=== PATIENT | male | born 1990 | race Caucasian/White ===

== ENCOUNTER 2016-04-29 23:57 | Emergency (ER) | payer MEDICAID ==
[~2016-04-29] VITALS: Ht 195.6 cm; Wt 159.0 kg
[2016-04-30 00:01] VITALS: BP 204/125; PULSE 124; RESP 14; TEMP 98.4; O2SAT 100
[2016-04-30] MEDS ORDERED: BUSP5TAB PO (00:16)
[2016-04-30] MEDS ORDERED: [UNRECOGNIZED DRUG - REMARK] (00:16)
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
== END 2016-04-30 04:32 | disposition home or self-care (01) ==
LOC: NEPE 23:57
DX: M54.9 Dorsalgia, unspecified (principal); I10 Essential (primary) hypertension; G47.30 Sleep apnea, unspecified; F17.200 Nicotine dependence, unspecified, uncomplicated; Z87.09 Personal history of other diseases of the respiratory system; Z86.59 Personal history of other mental and behavioral disorders; Z86.79 Personal history of other diseases of the circulatory system; Z87.39 Personal history of other diseases of the musculoskeletal system and connective tissue
CPT/HCPCS: 99283

== ENCOUNTER 2016-06-05 20:58 | Emergency (ER) | payer MEDICAID ==
[~2016-06-05] VITALS: Ht 198.1 cm; Wt 145.0 kg
[~2016-06-05 20:58] MED LIST: BUSP5TAB PO; [UNRECOGNIZED DRUG - REMARK]
[2016-06-05 20:59] VITALS: BP 180/92; PULSE 69; RESP 16; TEMP 98.9; O2SAT 100
--- NOTE | 2016-06-05 21:56 | PD ---
Physical Exam Date Seen by Provider: Jun 05, 2016 Time Seen by Provider: 21:52 Narrative 26 YOWM C/O CP YEST WORSE TODAY.WORSE WITH BREATHING AND MOVING. NO SOB,N/V, ABD PAIN.NO SWELLING IN THE LEGS. NO SEDENTARY ACTIVITY. POS TOB,NO ETOH. VS NOTED. PT AWAITING BED PLACEMENT. Data Data Last Documented VS Vital Signs Date Time Temp Pulse Resp B/P Pulse Ox O2 Delivery O2 Flow Rate FiO2 06/05/16 20:59 98.9 69 16 180/92 100 Room Air [facility] Medical Record Reviewed: Yes Supervised Visit with YOMAIRA: Yes Didier Wong Jun 05, 2016 21:56
[2016-06-05 22:59] VITALS: BP 154/92; PULSE 67; RESP 18; O2SAT 97
[2016-06-05] MEDS ORDERED: KETOROLAC TROMETHAMINE 30 MG/ML (IVP) VIAL IVP ONE (23:45)
[2016-06-05] MEDS ORDERED: SODIUM CHLOR 0.9% 1000 ML INJ 1,000 ML IV ONE (23:45)
[2016-06-05 23:48] VITALS: BP 146/85; PULSE 57; RESP 18; O2SAT 97
[2016-06-05 23:51] LABS: AUTOMATED NEUTROPHIL # 6.2 TH/MM3 (1.8-7.7); BASOPHIL % 0.4 % (0.0-2.0); EOSINOPHIL # 0.2 TH/MM3 (0-0.4); EOSINOPHIL % 1.6 % (0.0-4.0); HEMATOCRIT 44.1 % (39.0-51.0); HEMO FLAGS DIFF FINAL; LYMPH % 27.3 % (9.0-44.0); LYMPHOCYTE # 2.7 TH/MM3 (1.0-4.8); MEAN CELL VOLUME 90.2 FL (80.0-100.0); MEAN CORPUSCULAR HEMOGLOBIN 31.3 PG (27.0-34.0); MEAN CORPUSCULAR HGB CONC 34.7 % (32.0-36.0); MONO % 7.1 % (0.0-8.0); NEUT % 63.6 % (16.0-70.0); PLATELET COUNT 211 TH/MM3 (150-450); RED BLOOD COUNT 4.89 MIL/MM3 (4.50-5.90); RED CELL DISTRIBUTION WIDTH 13.1 % (11.6-17.2); WHITE BLOOD COUNT 9.7 TH/MM3 (4.0-11.0)
[2016-06-06 00:04] LABS: ALT (GPT) 27 U/L (12-78); ANION GAP 9 MEQ/L (5-15); AST (GOT) 16 U/L (15-37); BICARBONATE 27.5 MEQ/L (21.0-32.0); BLOOD UREA NITROGEN 11 MG/DL (7-18); CHLORIDE 107 MEQ/L (98-107); GLOMERULAR FILTRATION RATE 122 ML/MIN (>89); POTASSIUM 3.7 MEQ/L (3.5-5.1); SODIUM (NA) 143 MEQ/L (136-145)
[2016-06-06 00:06] LABS: ALKALINE PHOSPHATASE 89 U/L (45-117); TOTAL BILIRUBIN ADULT 0.4 MG/DL (0.2-1.0)
--- NOTE | 2016-06-06 00:19 | RADRPT ---
EXAM DATE/TIME: 06/05/2016 23:49 [place] COMPARISON: No previous studies available for comparison. INDICATIONS : Stabbing and burning feeling to the chest for thirty-six hours. MEDICAL HISTORY : Hypertension. SURGICAL HISTORY : None. ENCOUNTER: Initial ACUITY: 2 days PAIN SCORE: 8/10 LOCATION: Bilateral chest FINDINGS: PA and lateral views of the chest demonstrate the lungs to be symmetrically aerated without evidence of mass, infiltrate or effusion. The cardiomediastinal contours are unremarkable. Osseous structure s are intact. Old left-sided rib fractures. CONCLUSION: No acute disease. Anand Ariza MD on June 06, 2016 at 0:18 Board Certified Radiologist. This report was verified electronically.
[2016-06-06] MEDS ORDERED: NAPR500 PO (00:50)
--- NOTE | 2016-06-06 00:50 | PD ---
HPI Chief Complaint: Chest Pain Time Seen by Provider: 23:19 Travel History International Travel<30 days: No Contact w/Intl Traveler<30days: No Traveled to known affect area: No History of Present Illness HPI 26 year-old woman who presents to the emergency Department with left-sided chest pressure yesterday. Worse with deep breathing, or change of position, moving the left arm. No shortness of breath. No history of URI symptoms. No recent change in activity. He's had some chronic leg pain related to previous injury. Something he may have had a DVT in the past so this is not clear. Only medical history schizoaffective disorder anxiety. History Past Medical History Narrative Medical Schizoaffective disorder, anxiety Social History Alcohol Use: No Tobacco Use: Yes (2 PPD ) Allergies-Medications (Allergen,Severity, Reaction): Coded Allergies: [place] (Verified Allergy, Unknown, 06/05/16) Reported Meds & Prescriptions Reported Meds & Active Scripts Active Reported [Schizo Disorder] Buspirone (Buspirone HCl) 5 Mg Tab 5 Mg PO BID Review of Systems Except as stated in HPI: all other systems reviewed are Neg Physical Exam Narrative GENERAL: Well-appearing 26-year-old man, no acute distress. SKIN: Focused skin assessment warm/dry. HEAD: Atraumatic. Normocephalic. EYES: Pupils equal and round. No scleral icterus. No injection or drainage. ENT: No nasal bleeding or discharge. Mucous membranes pink and moist. NECK: Trachea midline. No JVD. CARDIOVASCULAR: Regular rate and rhythm. No murmur appreciated. RESPIRATORY: No accessory muscle use. Clear to auscultation. Breath sounds equal bilaterally. GASTROINTESTINAL: Abdomen soft, non-tender, nondistended. Hepatic and splenic margins not palpable. MUSCULOSKELETAL: No obvious deformities. No clubbing. No cyanosis. No edema. NEUROLOGICAL: Awake and alert. No obvious cranial nerve deficits. Motor grossly within normal limits. Normal speech. PSYCHIATRIC: Appropriate mood and affect; insight and judgment normal. Data Data Last Documented VS Vital Signs Date Time Temp Pulse Resp B/P Pulse Ox O2 Delivery O2 Flow Rate FiO2 06/05/16 23:48 57 18 146/85 97 Room Air 06/05/16 20:59 98.9 Orders Electrocardiogram (06/05/16 21:56) Complete Blood Count With Diff (06/05/16 23:32) Comprehensive Metabolic Panel (06/05/16 23:32) D-Dimer (06/05/16 23:32) Chest, Pa & Lat (06/05/16 23:32) Sodium Chlor 0.9% 1000 Ml Inj (Ns 1000 M (06/05/16 23:45) Ketorolac Inj (Toradol Inj) (06/05/16 23:45) Labs Laboratory Tests Test 06/05/16 23:30 White Blood Count 9.7 TH/MM3 Red Blood Count 4.89 MIL/MM3 Hemoglobin 15.3 GM/DL Hematocrit 44.1 % Mean Corpuscular Volume 90.2 FL Mean Corpuscular Hemoglobin 31.3 PG Mean Corpuscular Hemoglobin 34.7 % Concent Red Cell Distribution Width 13.1 % Platelet Count 211 TH/MM3 Mean Platelet Volume 9.7 FL Neutrophils (%) (Auto) 63.6 % Lymphocytes (%) (Auto) 27.3 % Monocytes (%) (Auto) 7.1 % Eosinophils (%) (Auto) 1.6 % Basophils (%) (Auto) 0.4 % Neutrophils # (Auto) 6.2 TH/MM3 Lymphocytes # (Auto) 2.7 TH/MM3 Monocytes # (Auto) 0.7 TH/MM3 Eosinophils # (Auto) 0.2 TH/MM3 Basophils # (Auto) 0.0 TH/MM3 CBC Comment DIFF FINAL Differential Comment D-Dimer Quantitative (PE/DVT) 0.24 MG/L FEU Sodium Level 143 MEQ/L Potassium Level 3.7 MEQ/L Chloride Level 107 MEQ/L Carbon Dioxide Level 27.5 MEQ/L Anion Gap 9 MEQ/L Blood Urea Nitrogen 11 MG/DL Creatinine 0.76 MG/DL Estimat Glomerular Filtration 122 ML/MIN Rate Random Glucose 80 MG/DL Calcium Level 8.7 MG/DL Total Bilirubin 0.4 MG/DL Aspartate Amino Transf 16 U/L (AST/SGOT) Alanine Aminotransferase 27 U/L (ALT/SGPT) Alkaline Phosphatase 89 U/L Total Protein 7.4 GM/DL Albumin 4.0 GM/DL [facility] Medical Decision Making Medical Screen Exam Complete: Yes Emergency Medical Condition: Yes Interpretation(s) CBC is unremarkable CMP is unremarkable D-dimer 0.24 Chest x-ray negative Differential Diagnosis Pleurisy, chest wall pain, PE, ACS, other Narrative Course Medical decision making INITIAL: 26 year-old man presents emergent department with sounds like cortical left-sided chest wall pain. Is likely pleurisy or chest wall pain. No clear inciting events. He has some chronic leg pains and maybe a little bit of worsening One the other. No clear DVT. D-dimer was negative. Recommend outpatient follow-up. Diagnosis Primary Impression: Chest wall pain Additional Instructions: Take Naprosyn as prescribed. Follow up with her primary doctor in the next 2-4 days. Med/Other Pt SpecificInfo: Prescription(s) given Scripts Naproxen (Naprosyn)500 Mg [id number] Mg PO BID PRN (PAIN SCALE 1 TO 10) #20 TAB Prov:Aamir Dhillon MD 06/06/16 Disposition: 01 DISCHARGE HOME Condition: Stable Aamir Dhillon MD Jun 06, 2016 00:50
--- NOTE | 2016-06-06 14:10 | EKG ---
Date Performed: 06/05/2016 Time Performed: 22:01:49 PTAGE: 26 years EKG: Sinus rhythm Since previous tracing, no significant change noted NORMAL ECG PREVIOUS TRACING : 08/31/2015 16.44 DOCTOR: Nichole Vargas Interpretating Date/Time 06/06/2016 14:08:37
== END 2016-06-06 01:31 | disposition home or self-care (01) ==
LOC: NEPC 20:58
DX: R07.89 Other chest pain (principal); F25.9 Schizoaffective disorder, unspecified; F17.200 Nicotine dependence, unspecified, uncomplicated
CPT/HCPCS: 71020; 80053; 85025; 85379; 93005; 96374; 99285; J1885; J7030

== ENCOUNTER 2016-07-21 00:41 | Emergency (ER) | payer MEDICAID ==
[~2016-07-21] VITALS: Ht 198.1 cm; Wt 150.0 kg
[~2016-07-21 00:41] MED LIST changes: +NAPR500 PO
[2016-07-21 00:42] VITALS: BP 181/95; PULSE 77; RESP 14; TEMP 99.1; O2SAT 99
[2016-07-21 01:25] LABS: AUTOMATED NEUTROPHIL # 8.8 TH/MM3 (1.8-7.7); BASOPHIL % 0.4 % (0.0-2.0); EOSINOPHIL # 0.2 TH/MM3 (0-0.4); EOSINOPHIL % 1.6 % (0.0-4.0); HEMATOCRIT 45.8 % (39.0-51.0); HEMO FLAGS DIFF FINAL; LYMPH % 18.1 % (9.0-44.0); LYMPHOCYTE # 2.2 TH/MM3 (1.0-4.8); MEAN CORPUSCULAR HEMOGLOBIN 30.2 PG (27.0-34.0); MEAN CORPUSCULAR HGB CONC 33.6 % (32.0-36.0); NEUT % 71.9 % (16.0-70.0); PLATELET COUNT 218 TH/MM3 (150-450); RED BLOOD COUNT 5.09 MIL/MM3 (4.50-5.90); RED CELL DISTRIBUTION WIDTH 13.5 % (11.6-17.2); WHITE BLOOD COUNT 12.3 TH/MM3 (4.0-11.0)
[2016-07-21 01:45] LABS: AMPHETAMINE, URINE NEG (NEG); BARBITURATES, URINE NEG (NEG); COCAINE, URINE NEG (NEG)
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
[2016-07-21 01:55] LABS: ALT (GPT) 26 U/L (12-78); ANION GAP 8 MEQ/L (5-15); AST (GOT) 14 U/L (15-37); BICARBONATE 26.4 MEQ/L (21.0-32.0); BLOOD UREA NITROGEN 13 MG/DL (7-18); CHLORIDE 110 MEQ/L (98-107); GLOMERULAR FILTRATION RATE 104 ML/MIN (>89); POTASSIUM 3.3 MEQ/L (3.5-5.1); SODIUM (NA) 144 MEQ/L (136-145)
[2016-07-21 01:57] LABS: ACETAMINOPHEN LESS THAN 2.0 MCG/ML (10.0-30.0); ALKALINE PHOSPHATASE 101 U/L (45-117); TOTAL BILIRUBIN ADULT 0.2 MG/DL (0.2-1.0)
[2016-07-21] MEDS ORDERED: POTASSIUM CHLORIDE 20 MEQ CONTROLLED RELEASE TAB PO ONE (02:00)
[2016-07-21] MEDS ORDERED: diphenhydrAMINE HCL 50 MG/ML VIAL IM ONE (04:45)
[2016-07-21] MEDS ORDERED: HALOPERIDOL LACTATE 5 MG/ML AMP IM ONE (04:45)
[2016-07-21 04:56] VITALS: BP 171/94; PULSE 65; RESP 18; O2SAT 96
[2016-07-21 10:18] VITALS: BP 165/94; PULSE 72; RESP 20; O2SAT 99
--- NOTE | 2016-07-21 11:25 | PD ---
Data Data Last Documented VS Orders Complete Blood Count With Diff (07/21/16 01:07) Comprehensive Metabolic Panel (07/21/16 01:07) Psych Screen (07/21/16 01:07) Drug Screen, Random Urine (07/21/16 01:07) Alcohol (Ethanol) (07/21/16 01:07) Salicylates (Aspirin) (07/21/16 01:07) Tylenol (Acetaminophen) (07/21/16 01:07) Potassium Chloride (Kcl) (07/21/16 02:00) Haloperidol Inj (Haldol Inj) (07/21/16 04:45) Diphenhydramine Inj (Benadryl Inj) (07/21/16 04:45) Diet Regular Basic (07/21/16 Breakfast) Labs MDM Medical Record Reviewed: Yes Supervised Visit with YOMAIRA: Yes Narrative Course Long disussion with pt and POA. Pt is not suicidal nor has he ever tried to harm himself previously. We spoke for about 20-30 minutes. I believe the patient likely had a negative response to opioids given to him at OSH resulting in aberrant behavior observed here. Pt's sister, who cares for and houses pt, contracted for safety in a compelling nature. We discussed return precautions at length. Pt ok for discharge. Diagnosis Primary Impression: Medication reaction Qualified Code: T88.7XXS - Medication reaction, sequela Additional Impression: Suicidal ideation Referrals: Psychiatrist 2 weeks Additional Instruction: You have a choice when it comes to health care, and we are glad that you chose [facility]. Hopefully, we have met your expectations on today's visit. You are welcome to return to [facility] at any time, as we are committed to meeting the health care needs of our community. Med/Other Pt SpecificInfo: No Change to Meds Scripts No Active Prescriptions or Reported Meds Disposition: DISCHARGE HOME Condition: Stable Andrew Joyce MD July 21, 2016 11:25 Mean Corpuscular Hemoglobin 30.2 PG Mean Corpuscular Hemoglobin 33.6 % Concent Red Cell Distribution Width 13.5 % Platelet Count 218 TH/MM3 Mean Platelet Volume 9.2 FL Neutrophils (%) (Auto) 71.9 % Lymphocytes (%) (Auto) 18.1 % Monocytes (%) (Auto) 8.0 % Eosinophils (%) (Auto) 1.6 % Basophils (%) (Auto) 0.4 % Neutrophils # (Auto) 8.8 TH/MM3 Lymphocytes # (Auto) 2.2 TH/MM3 Monocytes # (Auto) 1.0 TH/MM3 Eosinophils # (Auto) 0.2 TH/MM3 Basophils # (Auto) 0.0 TH/MM3 CBC Comment DIFF FINAL Differential Comment Sodium Level 144 MEQ/L Potassium Level 3.3 MEQ/L Chloride Level 110 MEQ/L Carbon Dioxide Level 26.4 MEQ/L Anion Gap 8 MEQ/L Blood Urea Nitrogen 13 MG/DL Creatinine 0.87 MG/DL Estimat Glomerular Filtration 104 ML/MIN Rate Random Glucose 109 MG/DL Calcium Level 8.9 MG/DL Total Bilirubin 0.2 MG/DL Aspartate Amino Transf 14 U/L (AST/SGOT) Alanine Aminotransferase 26 U/L (ALT/SGPT) Alkaline Phosphatase 101 U/L Total Protein 7.9 GM/DL Albumin 4.1 GM/DL Salicylates Level 3.9 MG/DL Acetaminophen Level LESS THAN 2.0 MCG/ML Ethyl Alcohol Level LESS THAN 3 MG/DL [facility] Medical Record Reviewed: Yes Supervised Visit with YOMAIRA: Yes Narrative Course Long disussion with pt and POA. Pt is not suicidal nor has he ever tried to harm himself previously. Diagnosis Primary Impression: Medication reaction Qualified Code: T88.7XXS - Medication reaction, sequela Additional Impression: Suicidal ideation Referrals: Psychiatrist 2 weeks Additional Instruction: You have a choice when it comes to health care, and we are glad that you chose [facility]. Hopefully, we have met your expectations on today's visit. You are welcome to return to [facility] at any time, as we are committed to meeting the health care needs of our community. Med/Other Pt SpecificInfo: No Change to Meds Scripts No Active Prescriptions or Reported Meds Disposition: 01 DISCHARGE HOME Condition: Stable Andrew Joyce MD July 21, 2016 11:25
== END 2016-07-21 12:02 | disposition home or self-care (01) ==
LOC: NEPD 00:41
DX: T88.7XXA Unspecified adverse effect of drug or medicament, initial encounter (principal); R45.851 Suicidal ideations; J45.909 Unspecified asthma, uncomplicated; I10 Essential (primary) hypertension; F17.210 Nicotine dependence, cigarettes, uncomplicated
CPT/HCPCS: 80053; 80307; 85025; 96372; 99284; J1200; J1630

== ENCOUNTER 2016-07-25 01:11 | Inpatient (IN) | payer MEDICAID ==
[~2016-07-25] VITALS: Ht 198.1 cm; Wt 139.8 kg
[2016-07-25] VITALS (7 sets, daily range): BP systolic 122–184; BP diastolic 70–110; PULSE 64–87; RESP 16–18; TEMP 97.9–98.8; O2SAT 95–98
[2016-07-25] MEDS ORDERED: busPIRone HCL 10 MG TAB PO ONE (02:00)
[2016-07-25] MEDS ORDERED: cloNIDine HCL 0.1 MG TAB PO ONE (02:00)
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
[2016-07-25 04:25] LABS: ALT (GPT) 28 U/L (12-78); ANION GAP 11 MEQ/L (5-15); AST (GOT) 17 U/L (15-37); BICARBONATE 25.4 MEQ/L (21.0-32.0); BLOOD UREA NITROGEN 11 MG/DL (7-18); CHLORIDE 106 MEQ/L (98-107); GLOMERULAR FILTRATION RATE 119 ML/MIN (>89); SODIUM (NA) 142 MEQ/L (136-145)
[2016-07-25 04:27] LABS: ACETAMINOPHEN LESS THAN 2.0 MCG/ML (10.0-30.0); ALKALINE PHOSPHATASE 99 U/L (45-117); TOTAL BILIRUBIN ADULT 0.4 MG/DL (0.2-1.0)
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
[2016-07-25] MEDS ORDERED: ACETAMINOPHEN 325 MG TAB PO PRN (16:45)
[2016-07-25] MEDS ORDERED: ALUMINUM/MAGNESIUM/SIMETH 30 ML CUP PO PRN (16:45)
[2016-07-25] MEDS ORDERED: MAGNESIUM HYDROXIDE SUSP 30 ML CUP PO PRN (16:45)
[2016-07-25 16:59] LABS: AMPHETAMINE, URINE NEG (NEG); BARBITURATES, URINE NEG (NEG); COCAINE, URINE NEG (NEG)
[2016-07-26 06:12] VITALS: BP 158/90; PULSE 63; RESP 17; TEMP 98; O2SAT 97
[2016-07-26 08:41] LABS: HEMOGLOBIN A1b 0.9 %; HEMOGLOBIN Ao 86.2 %; HEMOGLOBIN F 0.8 %; HEMOGLOBIN LA1C 1.9 %; HEMOGLOBIN P3 3.6 %
[2016-07-26 08:56] LABS: ANION GAP 6 MEQ/L (5-15); BLOOD UREA NITROGEN 11 MG/DL (7-18); CHLORIDE 107 MEQ/L (98-107); GLOMERULAR FILTRATION RATE 141 ML/MIN (>89); HDL CHOLESTEROL 22.9 MG/DL (40.0-60.0); LDL CHOLESTEROL 87 MG/DL (0-99); POTASSIUM 3.9 MEQ/L (3.5-5.1); SODIUM (NA) 141 MEQ/L (136-145)
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
[2016-07-26] MEDS ORDERED: BENZTROPINE MESYLATE 2 MG/2 ML VIAL IM PRN (15:00)
[2016-07-26] MEDS ORDERED: LORazepam 1 MG TAB PO PRN (15:00)
[2016-07-26] MEDS ORDERED: LORazepam 2 MG/ML VIAL IM PRN (15:00)
[2016-07-26] MEDS ORDERED: BENZTROPINE MESYLATE 1 MG TAB PO PRN (15:00)
[2016-07-26] MEDS ORDERED: diphenhydrAMINE HCL 50 MG CAP PO PRN (15:00)
[2016-07-26] MEDS ORDERED: HALOPERIDOL LACTATE 5 MG/ML AMP IM ONE (15:45)
[2016-07-26] MEDS ORDERED: diphenhydrAMINE HCL 50 MG/ML VIAL IM ONE (16:00)
[2016-07-26] MEDS: HALOPERIDOL 5 MG TAB PO SCH (21:02)
[2016-07-26] MEDS: ALPRAZolam 0.5 MG TAB PO SCH (21:02)
[2016-07-27 06:11] VITALS: BP 119/66; PULSE 61; RESP 18; TEMP 97.3; O2SAT 98
[2016-07-27] MEDS: HALOPERIDOL 5 MG TAB PO SCH ×2 (09:00→20:57)
[2016-07-27] MEDS: ALPRAZolam 0.5 MG TAB PO SCH ×2 (09:00→20:57)
--- NOTE | 2016-07-27 12:36 | HHI.PYPN ---
Subjective Remarks Patient seen and examined with counselor and nurse. Chart reviewed. Case discussed with nursing staff. On my examination today, the patient seems in much better spirits. He even smiles at intervals. Anxiety is reportedly ongoing but somewhat less. Mood is improved. He denies any suicidal or homicidal ideation at this time. He says that his audiovisual hallucinations are somewhat "slowed down." He denies side effects from medications except for some dry mouth. No physical complaints except for chronic complaint of jaw clenching which he says began prior to initiation of antipsychotics and is long- standing. Review of Systems Except as stated in HPI: all other systems reviewed are Neg Objective Alert: Yes [place]: Person (O x 3) Mood: Anxious (improving), Depressed (improving) Affect: Blunted (more reactive) Memory Intact: Comment (Not formally assessed today.) Hallucinations: Other (AVH of colors, music decreasing) Delusions: No Delusion Type: Other (No delusions) Suicidal: Ideation (Denies SI) Homicidal: Ideation (Denies HI) Insight/Judgment Poor Remarks Besides the jaw clenching, which the patient says is chronic and for which he declines treatment, no abnormal motor movements noted. No hand tremor, no dystonia, no dyskinesia, no cogwheeling. Thought processes linear. Speech within normal limits for rate, tone and volume. Grooming and hygiene fair. Labs Labs reviewed. Vitals/IOs Vital Signs Date Time Temp Pulse Resp B/P Pulse Ox O2 Delivery O2 Flow Rate FiO2 07/27/16 06:11 97.3 61 18 119/66 98 07/25/16 10:00 Room Air Assessment & Plan Problem List: (1) Schizoaffective disorder ICD Code: F25.9 Assessment & Plan Patient prefers to continue current psychotropics as ordered for now. Continue Haldol 5 mg twice daily and Xanax 0.5 mg twice daily. I will order Biotene as needed for dry mouth. To consider further titration of either of the patient's primary psychotropics. Continue to monitor on the high acuity unit. Continue other medications and care as ordered. Justification for Cont. Inpt. Monitoring for impairments in safety. High risk for decompensation in a less restrictive environment pending psychiatric stabilization. Discharge Planning Pending psychiatric stabilization. Patient hopeful for discharge by the end of the week, which is possible if he continues to improve although after the weekend may be more realistic. Request HC Surrog/Guard Advoc?: Yes Problem Qualifiers (1) Schizoaffective disorder: Qualified Code: F25.8 - Other schizoaffective disorders Marvin Son MD July 27, 2016 12:36
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
[2016-07-27] MEDS ORDERED: HALOPERIDOL LACTATE 5 MG/ML AMP ONE (17:28)
[2016-07-27 18:16] VITALS: BP 145/90; PULSE 71; RESP 18; TEMP 97.4; O2SAT 99
[2016-07-28 05:41] VITALS: BP 131/73; PULSE 62; RESP 17; TEMP 98; O2SAT 100
[2016-07-28] MEDS: HALOPERIDOL 5 MG TAB PO SCH ×2 (08:33→21:08)
[2016-07-28] MEDS: ALPRAZolam 0.5 MG TAB PO SCH ×2 (08:33→21:08)
--- NOTE | 2016-07-28 13:28 | HHI.PYPN ---
Subjective Remarks Patient seen and examined with nurse. Chart reviewed. I note that the patient required a Haldol PRN yesterday afternoon for reported voices. Case discussed with nursing staff who reports that the patient is somewhat discharge focused. On my examination today, the patient once again seems more reactive with respect to his affect. He smiles at times. He complains of feeling somewhat tired and bored on the unit and requests to be discharged. He says that he has spoken with his sister who is acting as his healthcare surrogate and that she wants him discharged as well. He asks that I give her a call. He denies any audiovisual hallucinations at this time. Denies any suicidal ideation. Denies side effects from medications. No physical complaints. I did place a call to the patient's sister, Ana. She thinks the patient is much improved but does NOT support a discharge today in light of need for PRN yesterday. She does say that she would support a possible discharge tomorrow with a med adjustment, if the patient does well overnight. If he is released tomorrow, she would like to pick him up in the early evening. We once again discuss the need to secure the home environment in advance of patient's return home. She thanks me for the call. Review of Systems Except as stated in HPI: all other systems reviewed are Neg Objective Alert: Yes [place]: Person, Place, Date Mood: Calm Affect: Blunted (bordering on normal reactivity) Memory Intact: Comment (Not assessed) Hallucinations: Other (Denies AVH) Delusions: No Delusion Type: Other (No delusional material.) Suicidal: Ideation (Denies SI) Homicidal: Ideation (Denies HI) Insight/Judgment Poor Remarks No motor abnormalities noted. Thought process fairly linear. Labs Labs reviewed. Vitals/IOs Vital Signs Date Time Temp Pulse Resp B/P Pulse Ox O2 Delivery O2 Flow Rate FiO2 07/28/16 05:41 98.0 62 17 131/73 100 07/25/16 10:00 Room Air Assessment & Plan Problem List: (1) Schizoaffective disorder ICD Code: F25.9 Assessment & Plan Titrate Haldol to 7.5mg twice daily. Continue Xanax as ordered. Continue to monitor on the inpatient unit. Continue other medications and care as ordered. Justification for Cont. Inpt. Medication changes in process. Discharge Planning Possible discharge tomorrow if the patient passes an uneventful evening and tolerates medications well. Request HC Surrog/Guard Advoc?: Yes Problem Qualifiers (1) Schizoaffective disorder: Qualified Code: F25.8 - Other schizoaffective disorders Marvin Son MD Jul 28, 2016 13:28
[2016-07-28] MEDS ORDERED: PILL SPLITTER OTHER PRN (13:45)
[2016-07-28 15:33] VITALS: BP 147/81; PULSE 83; RESP 17; TEMP 97.1; O2SAT 100
[2016-07-29 06:03] VITALS: BP 148/59; PULSE 68; RESP 18; TEMP 97.4; O2SAT 98
[2016-07-29] MEDS: HALOPERIDOL 5 MG TAB PO SCH (09:20)
[2016-07-29] MEDS: ALPRAZolam 0.5 MG TAB PO SCH (09:20)
[2016-07-29] MEDS ORDERED: HALO5TAB PO (09:57)
[2016-07-29] MEDS ORDERED: ALPR.5 PO (09:57)
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
== END 2016-07-29 14:50 | disposition home or self-care (01) | DRG 885 ==
LOC: NEPJ 01:11 → NEDA 16:40 → H270 17:41
PROVIDERS: ADMIT Psychiatry & Neurology Psychiatry; ATTEND Psychiatry & Neurology Psychiatry
DX: F25.9 Schizoaffective disorder, unspecified (principal); R45.851 Suicidal ideations; I10 Essential (primary) hypertension; F32.9 Major depressive disorder, single episode, unspecified; J45.909 Unspecified asthma, uncomplicated; G47.30 Sleep apnea, unspecified; F43.20 Adjustment disorder, unspecified; F91.8 Other conduct disorders; Z87.820 Personal history of traumatic brain injury; F41.9 Anxiety disorder, unspecified; Z91.5 Personal history of self-harm; Z81.8 Family history of other mental and behavioral disorders; Z72.0 Tobacco use; Z62.810 Personal history of physical and sexual abuse in childhood
CPT/HCPCS: 80048; 80053; 80061; 80307; 83036; 99285; J1200; J1630; Q0163